=== PATIENT | male | born 2000 | race Caucasian/White ===

== ENCOUNTER 2021-10-28 10:58 | Outpatient (CLI) | payer OTHER | END 2021-10-28 11:06 | disposition home or self-care (01) | LOC: RAD 10:58 | PROVIDERS: ATTEND Orthopaedic Surgery | DX: M25.512 Pain in left shoulder (principal) ==

== ENCOUNTER → 2025-07-19 | Emergency (ER) | payer OTHER ==
[~2025-07-19] VITALS: Ht 180.3 cm; Wt 79.4 kg
[~2025-07-19] MED LIST: ACETAMINOPHEN 325 MG TABLET PO ONE; AMOX1TAB5 PO; CEFTRIAXONE SODIUM 1,000 MG VIAL IM ONE; CEFTRIAXONE SODIUM 1,000 MG VIAL ONE; DIPHTH,PERTUSS(ACELL),TET VAC 0.5 ML SYRINGE IM ONE; DOLOGESIC 500-1 EACH PO; LIDOCAINE HCL 1% 10ML VIAL ONE; TETANUS & DIPHTHERIA TOX,ADULT 0.5 ML VIAL IM ONE
== END | disposition home or self-care (01) ==
LOC: ER 17:18
DX: S61.011A Laceration without foreign body of right thumb without damage to nail, initial encounter (principal); W26.0XXA Contact with knife, initial encounter; Y93.G3 Activity, cooking and baking; Y92.010 Kitchen of single-family (private) house as the place of occurrence of the external cause; Y99.9 Unspecified external cause status